=== PATIENT | male | born 1975 ===

== ENCOUNTER 2017-01-27 20:24 | Inpatient (IN) ==
[2017-01-27] MEDS ORDERED: MORPHINE 2 MG/1 ML SYRINGE IV STA (20:55)
[2017-01-27] MEDS ORDERED: FUROSEMIDE 100 MG/10 ML VIAL IV STA (20:55)
[2017-01-27] MEDS ORDERED: ONDANSETRON 4 MG/2 ML VIAL IV STA (20:55)
[2017-01-27] MEDS ORDERED: ALBUTEROL 2.5 MG/3 ML NEB RESP TX SCH (21:00)
[2017-01-27] MEDS ORDERED: ONDANSETRON 4 MG/2 ML VIAL ONE (21:06)
[2017-01-27] MEDS ORDERED: MORPHINE 2 MG/1 ML SYRINGE ONE (21:06)
[2017-01-27] MEDS ORDERED: FUROSEMIDE 100 MG/10 ML VIAL ONE (21:06)
--- NOTE | 2017-01-27 21:12 | Emergency Department Note ---
Vega Erickson Brittany, am scribing for, and in the presence of, Alejandro Diaz MD 21:07. Joe Erickson Charles R, MD, personally performed the services described in this documentation, ascribed by Zina Ferrari in my presence, and it is both accurate and complete . Arrival - Arrival Chief Complaint: Extremity Problem Stated Complaint: left arm pain ED Nursing Triage Note: left hand/ arm pain, denies injury Mode of Arrival: Stretcher Limitations: No Limitations Source: Patient, Old Records Reviewed, RN Notes Reviewed Time Seen by Provider: 01/27/17 20:47 - History of Present Illness HPI Narrative: Mr. Lozada is a 41 y/o [place] male presenting to the ED by EMS from home with c/o pain at the base of the left thumb with an onset of today. He denies suffering from any recent injury or fall. Patient confirms reproducable pain to touch at the base of the left thumb. As we progressed through the history and physical patient goes on to report that he has been having some facial swelling and shortness of breath, but denies any numbness or tingling of the bilateral lower extremities. He is concerned that he may need dialysis tonight, although he is scheduled for his next dialysis appointment in the morning. He has an AV Graft in the left forearm. Patient takes Dialysis on Wednesday, , and Wednesday. Patient has a past medical history of HTN, NIDDM, and End Stage Renal Disease. Allergies/Adverse Reactions: Allergies Allergy/AdvReac Type Severity Reaction Status Date / Time ibuprofen Allergy Unknown/Unable Verified 09/23/16 10:56 to obtain Home Medications: Home Medications Medication Instructions Recorded Confirmed Type Calcium Acetate [Phoslo] 1,334 mg PO TID W/MEALS 09/23/16 09/23/16 History Calcium Acetate [Phoslo] 667 mg PO WITH SNACKS 09/23/16 09/23/16 History Mineral Oil/Petrolatum,White 3.5 gm BOTH EYES BEDTIME 09/23/16 09/23/16 History [Artificial Tears Eye Ointment] Polyvinyl Alcohol 1.4% Oph Ana María 1 drop BOTH EYES QID PRN 09/23/16 09/23/16 History [Artificial Tears Oph Soln] Pregabalin [Lyrica] 25 mg PO BID 09/23/16 09/23/16 History Propylene Glycol [Systane Balance] 1 drop BOTH EYES QID PRN 09/23/16 09/23/16 History Sevelamer Carbonate Tab [Renvela 2,400 mg PO TID W/MEALS 09/23/16 09/23/16 History Tab] clonazePAM TAB [KlonoPIN] 0.5 mg PO BEDTIME PRN 09/23/16 09/23/16 History rOPINIRole [Requip] 2 mg PO BEDTIME PRN 09/23/16 09/23/16 History Acetaminophen Tab [Tylenol Tab] 325 mg PO Q4H PRN #0 tablet 09/26/16 Rx Bisacodyl Tab [Dulcolax Tab] 10 mg PO DAILY PRN #0 tablet 09/26/16 Rx Carvedilol [Coreg] 6.25 mg PO BID tablet 09/26/16 Rx Dextrose 50% [D50] 25 gm IV PRN PRN #0 vial 09/26/16 Rx Diphenoxylate/Atrop 2.5-0.025 1 tablet PO Q4H PRN #0 tablet 09/26/16 Rx [Lomotil Tab] Enoxaparin [Lovenox] 30 mg SUBCUT Q24H syringe 09/26/16 Rx Glucagon 1 mg IM PRN PRN #0 vial 09/26/16 Rx HYDROcodone/ACETAMIN 7.5-325 1 tablet PO Q4H PRN #0 tablet 09/26/16 Rx [[place] 7.5-325] Insulin Glargine [Lantus] 5 unit SUBCUT DAILY injection 09/26/16 Rx Insulin Lispro [HumaLOG] See Protocol SUBCUT ACHS ml 09/26/16 Rx Lactulose Liquid [Chronulac] 20 gm PO Q4H PRN #0 udcup 09/26/16 Rx Losartan Potassium 50 mg PO DAILY #0 09/26/16 09/23/16 Rx Ondansetron Inj [Zofran Inj] 4 mg IV Q4H PRN #0 vial 09/26/16 Rx Vancomycin Inj 1,000 mg IV PRN PRN #0 vial 09/26/16 Rx Review of System - Review of System 12 point system: reviewed and no additional remarkable complaints except as stated - Review of System Constitutional: Absent: chills, fever, weakness Eyes: Absent: vision change Head/Ears/Nose/Throat: Absent: nasal drainage, sore throat Respiratory: Present: respiratory distress Cardiovascular: Absent: chest pain, palpitations Gastrointestinal: Absent: abdominal pain, nausea, vomiting, diarrhea, constipation Genitourinary male: Absent: urgency, dysuria, frequency Musculoskeletal: Present: as per HPI, arm pain. Absent: back pain, leg pain, neck pain Skin: Absent: rash Neurological: Absent: headache, numbness, paresthesias Psychiatric: Absent: anxiety, depression Allergic/Immunologic: Present: facial swelling Medical,Surgical,& Family Hx - Medical History Cardio: History of: Hypertension Neurology: No history of: Seizures Endocrine: History of: Diabetes Mellitus (IDDM), Diabetes Mellitus (NIDDM) Renal: History of: Dialysis, Renal Failure Musculoskeletal: History of: Amputation (partial foot amputation right foot) - Surgical History Cardiac Surgeries: Sugical HX of: Vascular Access Devices (Fistula in his left arm) Thoracic Surgeries: Patient denies;: Organ Transplant HEENT Surgeries: Surgical HX of: Tonsilectomy & Adenoidectomy Abdominal Surgeries: Surgical HX of: Abdominal Surgery (gallbladder), Cholecystectomy Orthopedic Surgeries: Surgical HX of;: Orthopedic Surgery (Amputation of his right toes and partial amputation of his finger on his le) - Family History Family History: Reports;: Family Diabetes, Family Heart Disease, Family Hypertension Denies;: Family Cancer, Family Stroke - Social History Smoking Status: Current every day smoker Frequency of Alcohol Use: None Type of Drug Use: None Exam Vital Signs: Vital Signs Temperature 99.2 F 01/27/17 20:25 Pulse Rate 77 01/27/17 22:20 Respiratory Rate 20 01/27/17 22:20 Blood Pressure 175/81 01/27/17 20:38 O2 Sat by Pulse Oximetry 100 01/27/17 22:20 - General General appearance: alert, in no apparent distress - Head Head exam: Present: atraumatic, normocephalic. Absent: normal inspection ( facial swelling) - Eye Eye exam: Present: normal appearance, PERRL, EOMI - ENT ENT exam: Present: normal exam, normal oropharynx - Neck Neck exam: Present: normal inspection, full ROM, trachea midline - Chest Chest inspection: Present: normal inspection, symmetric chest wall rise - Respiratory Respiratory exam: Present: rales (bilateral rales). Absent: normal lung sounds bilaterally - Cardiovascular Cardiovascular exam: Present: regular rate, normal rhythm, normal heart sounds. Absent: murmur, rubs, gallop - Abdominal Exam Abdominal exam: Present: soft, normal bowel sounds. Absent: distention, tenderness - Extremities Exam Extremities exam: Present: normal inspection (can oppose and move the left thumb normally, sensation is intact, good thrill of AV Graft), full ROM, tenderness (reproducable pain at the base of the left thumb), normal capillary refill, pedal edema (+1 edema noted to bilateral lower extremities) - Back Exam Back exam: Present: normal inspection - Neurological Exam Neurological exam: Present: alert, oriented X3, CN II-XII intact. Absent: motor sensory deficit - Psychiatric Psychiatric exam: Present: normal affect, normal mood - Skin Skin exam: Present: warm, dry, intact, normal color Course - Consultations Consultation #1: Hospitalist will admit patient Time: 22:52 Results - Labs CBC & BMP: 01/27/17 21:15 01/27/17 21:15 Lab Results: I have reviewed the patients labs Labs: Laboratory Tests 01/27/17 01/27/17 21:15 21:15 WBC 9.2 RBC 3.18 L Hgb 10.8 L Hct 31.1 L Plt Count 105 L Neut % (Auto) 86.3 H Lymph % (Auto) 8.7 L Neut # (Auto) 7.9 H Lymph # (Auto) 0.8 L INR 1.0 PT Patient/Control Mix 10.4 Laboratory Tests 01/27/17 01/27/17 01/27/17 21:15 21:15 21:15 Sodium 134 L Potassium 4.6 Chloride 95 L Carbon Dioxide 18 L Anion Gap 25.6 H BUN 113 H Creatinine 20.40 H BUN/Creatinine Ratio 5.00 L Glucose 136 H Calculated Osmolality 305.2 H Uric Acid 9.9 H Calcium 8.2 L Magnesium 2.9 H Alkaline Phosphatase 162 H Troponin I < 0.015 B-Natriuretic Peptide 1621 H Globulin 3.9 H Albumin/Globulin Ratio 0.8 L - Diagnostic Findings Procedure: Chest x-ray: report reviewed by me (Bilateral prominent hilar vasculature may partly reflect crowding. Pulmonary venous hypertensive changes are not excluded.) Critical Care Time Critical Care Time: Yes Total Critical Care Time: 60 Disposition Clinical Impression: ESRD (end stage renal disease) on dialysis, Essential (primary) hypertension, Left wrist acute gouty arthritis, Lower extremity edema, Congestive heart failure, Acute dyspnea Case discussed with: patient, patient's family Condition: Guarded Time of Disposition: 22:52
[2017-01-27] MEDS ORDERED: NITROGLYCERIN 2% OINT 1 INCH/GM PACK TOP ONE (21:14)
[2017-01-27] MEDS ORDERED: NITROGLYCERIN 2% OINT 1 INCH/GM PACK TOP STA (21:28)
--- NOTE | 2017-01-27 21:30 | XRay Report ---
XR chest 1V portable Indication: Shortness of breath Comparison: Chest x-ray 09/23/2016 Technique: Portable AP chest was performed. Findings: The heart size appears within normal limits. Pulmonary vasculature is minimally prominent within the central chest. This finding is stable and is likely accentuated by technique. Hilar structures demonstrate fairly symmetric appearance. The lungs appear clear. Bones and soft tissues demonstrate no evidence of acute pathology. Impression: 1. Bilaterally prominent hilar vasculature may partly reflect crowding. Pulmonary venous hypertensive changes are not excluded. 01/27/2017 9:27 PM PROCEDURE INTERPRETED AT [facility] Final Report Signed by: Dr. Pete Jennings
[2017-01-27 21:35] LABS: Basophils % 0.2 % (0.0-0.8); Eosinophils # 0.1 10*3/uL (0.0-0.87); Eosinophils % 1.3 % (0.00-10.9); Hematocrit 31.1 VOL% (42.0-52.0); Hemoglobin 10.8 GM/DL (14.0-18.0); Immature Granulocytes % 0.5 %; Immature Granulocytes Absolute 0.05 #; Lymphocytes # 0.8 10*3/uL (1.4-4.0); Lymphocytes % 8.7 % (21.2-54.2); Mean Corpuscular HGB Conc 34.7 GM/DL (32-36); Mean Corpuscular Hemoglobin 34 PG (27-34); Mean Corpuscular Volume 97.8 FL (87-102); Monocytes # 0.3 10*3/uL (0.11-0.8); Neutrophils # 7.9 10*3/uL (1.4-7.4); Neutrophils % 86.3 % (38.7-73.9); Platelet Count 105 T/CUMM (130-400); Red Blood Count 3.18 MC/CUMM (3.8-5.5); Red Cell Distribution Width 16.4 % (9.3-17.3); White Blood Count 9.2 T/CUMM (4-12)
[2017-01-27 21:44] LABS: PT Patient Result 10.4 SECS
[2017-01-27 22:06] LABS: Alanine Aminotransferase 52 U/L (16-61); Albumin 3.4 G/DL (3.4-5.0); Alkaline Phosphatase 162 U/L (45-117); Aspartate Amino Transferase 27 U/L (0-37); Blood Urea Nitrogen 113 MG/DL (7-18); Calcium 8.2 MG/DL (8.5-10.1); Glucose 136 MG/DL (74-106); Magnesium 2.9 MG/DL (1.8-2.4); Osmolality,Calculated 305.2 MOS/KG (273-304); Potassium 4.6 MMOL/L (3.5-5.1); Sodium 134 MMOL/L (136-145); Total Protein 7.3 G/DL (6.4-8.3); Troponin I Only < 0.015 NG/ML (0.00-0.045)
[2017-01-27] MEDS ORDERED: COLCHICINE 0.6 MG TABLET PO STA (22:09)
[2017-01-27] MEDS ORDERED: COLCHICINE 0.6 MG TABLET ONE (22:26)
[2017-01-27] MEDS ORDERED: ACETAMINOPHEN 325 MG TABLET PO PRN (23:25)
[2017-01-27] MEDS ORDERED: GLUCAGON 1 MG VIAL IM PRN (23:25)
[2017-01-27] MEDS ORDERED: DEXTROSE 50% 25 GM/50 ML VIAL IV PRN (23:25)
[2017-01-27] MEDS ORDERED: ONDANSETRON 4 MG/2 ML VIAL IV PRN (23:25)
--- NOTE | 2017-01-27 23:37 | Hospitalist History & Physical ---
Assessment and Plan (1) Congestive heart failure Status: Acute Current Visit: Yes (2) ESRD (end stage renal disease) on dialysis Status: Acute Current Visit: Yes (3) Essential (primary) hypertension Status: Acute Current Visit: Yes (4) Lower extremity edema Status: Acute Current Visit: Yes (5) Diabetes mellitus Status: Acute Assessment and plan: Our plan for this patient will be admitting him on a monitored bed. Dialyzing him tomorrow. We will get nephrology to see him while he is here to help arrange for dialysis. Patient should be able to be discharged fairly quickly. Patient does have an elevated BNP at 1621. We will get his home meds confirmed and I will continue as appropriate Current Visit: No History of Present Illness Chief complaint: Shortness of breath History of present illness: Mr. Lozada is a 41 year old male with past medical history for end-stage renal disease hypertension diabetes who comes into our hospital tonight complaining about shortness of breath. Patient gets dialysis on Wednesday and Saturdays. Patient failed to go to his dialysis appointment yesterday. He said he had diarrhea and could not make it. He gets short of breath tonight and call ambulance and was brought up here for further evaluation. Looking at his labs and chest x-ray it appears that patient needs to dialyzed tomorrow. He is stable otherwise this is not emergent Home Medications Medication Instructions Recorded Confirmed Type Calcium Acetate [Phoslo] 1,334 mg PO TID W/MEALS 09/23/16 09/23/16 History Calcium Acetate [Phoslo] 667 mg PO WITH SNACKS 09/23/16 09/23/16 History Mineral Oil/Petrolatum,White 3.5 gm BOTH EYES BEDTIME 09/23/16 09/23/16 History [Artificial Tears Eye Ointment] Polyvinyl Alcohol 1.4% Oph Ana María 1 drop BOTH EYES QID PRN 09/23/16 09/23/16 History [Artificial Tears Oph Soln] Pregabalin [Lyrica] 25 mg PO BID 09/23/16 09/23/16 History Propylene Glycol [Systane Balance] 1 drop BOTH EYES QID PRN 09/23/16 09/23/16 History Sevelamer Carbonate Tab [Renvela 2,400 mg PO TID W/MEALS 09/23/16 09/23/16 History Tab] clonazePAM TAB [KlonoPIN] 0.5 mg PO BEDTIME PRN 09/23/16 09/23/16 History rOPINIRole [Requip] 2 mg PO BEDTIME PRN 09/23/16 09/23/16 History Acetaminophen Tab [Tylenol Tab] 325 mg PO Q4H PRN #0 tablet 09/26/16 Rx Bisacodyl Tab [Dulcolax Tab] 10 mg PO DAILY PRN #0 tablet 09/26/16 Rx Carvedilol [Coreg] 6.25 mg PO BID tablet 09/26/16 Rx Dextrose 50% [D50] 25 gm IV PRN PRN #0 vial 09/26/16 Rx Diphenoxylate/Atrop 2.5-0.025 1 tablet PO Q4H PRN #0 tablet 09/26/16 Rx [Lomotil Tab] Enoxaparin [Lovenox] 30 mg SUBCUT Q24H syringe 09/26/16 Rx Glucagon 1 mg IM PRN PRN #0 vial 09/26/16 Rx HYDROcodone/ACETAMIN 7.5-325 1 tablet PO Q4H PRN #0 tablet 09/26/16 Rx [[place] 7.5-325] Insulin Glargine [Lantus] 5 unit SUBCUT DAILY injection 09/26/16 Rx Insulin Lispro [HumaLOG] See Protocol SUBCUT ACHS ml 09/26/16 Rx Lactulose Liquid [Chronulac] 20 gm PO Q4H PRN #0 udcup 09/26/16 Rx Losartan Potassium 50 mg PO DAILY #0 09/26/16 09/23/16 Rx Ondansetron Inj [Zofran Inj] 4 mg IV Q4H PRN #0 vial 09/26/16 Rx Vancomycin Inj 1,000 mg IV PRN PRN #0 vial 09/26/16 Rx Allergies Allergy/AdvReac Type Severity Reaction Status Date / Time ibuprofen Allergy Unknown/Unable Verified 09/23/16 10:56 to obtain Medical,Surgical,& Family Hx - Medical History Cardio: History of: Hypertension Neurology: No history of: Seizures Endocrine: History of: Diabetes Mellitus (IDDM), Diabetes Mellitus (NIDDM) Renal: History of: Dialysis, Renal Failure Musculoskeletal: History of: Amputation (partial foot amputation right foot) - Surgical History Cardiac Surgeries: Sugical HX of: Vascular Access Devices (Fistula in his left arm) Thoracic Surgeries: Patient denies;: Organ Transplant HEENT Surgeries: Surgical HX of: Tonsilectomy & Adenoidectomy Abdominal Surgeries: Surgical HX of: Abdominal Surgery (gallbladder), Cholecystectomy Orthopedic Surgeries: Surgical HX of;: Orthopedic Surgery (Amputation of his right toes and partial amputation of his finger on his le) - Family History Family History: Reports;: Family Diabetes, Family Heart Disease, Family Hypertension Denies;: Family Cancer, Family Stroke - Social History Smoking Status: Current every day smoker Frequency of Alcohol Use: None Type of Drug Use: None 12 point system: reviewed and no additional remarkable complaints except as stated Exam - Constitutional Vitals: Period Temp Pulse Resp BP Sys/[place]helby Pulse Ox Last 24 Hr 99.2 F-99.2 F 76-77 20-20 172-175/78-81 98-100 General appearance: over weight - Head Head exam: Present: normal inspection - Eye Eye exam: Present: EOMI Pupils: Present: ABRIL - ENT ENT exam: Present: normal exam - Neck Neck exam: Present: normal inspection - Respiratory Respiratory exam: Present: clear to auscultation bilaterally - Cardiovascular Cardiovascular exam: Present: regular rate and rhythm - GI/Abdominal GI/Abdominal exam: Present: normal bowel sounds - Extremities Exam Extremities exam: Present: normal inspection - Back Exam Back exam: Present: normal inspection - Neurological Exam Neurological exam: Present: alert, oriented X3 - Psychiatric Psychiatric exam: Present: normal affect - Skin Skin exam: Present: normal color Results - Labs CBC & BMP: 01/27/17 21:15 01/27/17 21:15
[2017-01-28 06:47] LABS: Basophils % 0.1 % (0.0-0.8); Eosinophils # 0.1 10*3/uL (0.0-0.87); Eosinophils % 1.7 % (0.00-10.9); Hematocrit 27.4 VOL% (42.0-52.0); Hemoglobin 9.2 GM/DL (14.0-18.0); Immature Granulocytes % 1.1 %; Immature Granulocytes Absolute 0.08 #; Lymphocytes % 13.1 % (21.2-54.2); Mean Corpuscular HGB Conc 33.6 GM/DL (32-36); Mean Corpuscular Hemoglobin 33 PG (27-34); Mean Corpuscular Volume 98.6 FL (87-102); Mean Platelet Volume 10.1 FL (9.6-12.0); Monocytes # 0.3 10*3/uL (0.11-0.8); Monocytes % 4.3 % (1.7-12.7); Neutrophils # 5.9 10*3/uL (1.4-7.4); Neutrophils % 79.7 % (38.7-73.9); Platelet Count 105 T/CUMM (130-400); Red Blood Count 2.78 MC/CUMM (3.8-5.5); Red Cell Distribution Width 16.4 % (9.3-17.3); White Blood Count 7.4 T/CUMM (4-12)
--- NOTE | 2017-01-28 07:57 | EKG Report ---
Stationary ECG Study [facility] ER Test Date: 01/27/2017 8:26:44 PM Pat Name: KYLE KELLEY Department: Room: 419 Gender: M Ladder Operator: MANUEL : 1975 Requested by: Alejandro Gomez Order Number: [id number] Reading MD: BEN MORATAYA Intervals [place] Rate: 77 P: 50 NM: 190 QRS: 59 QRSD: 91 T: 36 QT: 381 QTc: 412 Interpretive Statements SINUS RHYTHM Electronically Signed On 01-29-17 22:21:27 CDT by BEN MORATAYA [email or web address]
[2017-01-28 08:00] LABS: Calcium 8.1 MG/DL (8.5-10.1); Osmolality,Calculated 308.2 MOS/KG (273-304); Potassium 4.6 MMOL/L (3.5-5.1)
[2017-01-28] MEDS: PANTOPRAZOLE 40 MG TABLET PO SCH (09:20)
[2017-01-28] MEDS: ENOXAPARIN 30 MG/0.3 ML SYRINGE SUBCUT SCH (09:20)
[2017-01-28] MEDS: INSULIN REGULAR 100 UNIT/ML SUBCUT SCH ×4 (09:21→20:57)
[2017-01-28] MEDS: MORPHINE 2 MG/1 ML SYRINGE IV PRN ×2 (09:25→15:36)
--- NOTE | 2017-01-28 11:29 | Physician Query Form ---
CLICK EDIT DOCUMENT TO SELECT QUERY ANSWER --> OK --> SIGN Jess Jennings RN, CCDS Certified Clinical Intern W) [phone] (f) [phone] [email or web address] PROVIDERS: Make your selection(s) from the choices in EACH section by typing an "x" and enter comments in the comment section. Please use your independent medical judgment in providing your response. This request does not imply that any particular answer is desired or expected. CLINICAL INDICATORS: (Providers should not edit this section) The medical record indicates that the patient was admitted with CHF, SOB, BNP of 1621# and the patient is a dialysis patient. Please provide further specificity regarding CHF. ACUITY: ( ) Acute ( ) Chronic ( x) Acute on Chronic ( ) Clinically unable to determine TYPE: (x ) Systolic (HFrEF - heart failure with reduced systolic function/EF) ( ) Diastolic (HFpEF - heart failure with preserved systolic function/EF) ( ) Combined Systolic/Diastolic ( ) Other, please specify: ( ) Clinically unable to determine ( ) The patient does NOT have CHF COMMENTS: PLEASE ALSO DOCUMENT RESPONSE IN PROGRESS NOTES AND/OR DISCHARGE SUMMARY Use of terms such as suspected, likely, or probable (associated with a specific diagnosis that is being evaluated, monitored, or treated as if it exists) are acceptable and can be restated in the discharge summary if not ruled out. MTDD
[2017-01-28] MEDS ORDERED: ACETAMINOPHEN 325 MG TABLET PO PRN (12:25)
--- NOTE | 2017-01-28 12:25 | Nephrology Consult Note ---
History of Present Illness Chief complaint: End-stage renal disease History of present illness: Mr. Lozada is a 41 year old male history of end-stage renal disease due to hypertension and diabetes currently dialyzes at the [place] dialysis unit on a Wednesday schedule. Moreover, patient has history of chronic diarrhea and reported that he did not go to dialysis on Wednesday due to stomach symptoms. He presented on yesterday with increased swelling shortness of breath and arm pain. He is found to be volume overloaded and has been admitted for further treatment. Nephrology is been consulted for dialysis management. Home Medications Medication Instructions Recorded Confirmed Type Calcium Acetate [Phoslo] 1,334 mg PO TID W/MEALS 09/23/16 01/28/17 History Calcium Acetate [Phoslo] 667 mg PO WITH SNACKS 09/23/16 01/28/17 History Mineral Oil/Petrolatum,White 3.5 gm BOTH EYES BEDTIME 09/23/16 01/28/17 History [Artificial Tears Eye Ointment] Polyvinyl Alcohol 1.4% Oph Ana María 1 drop BOTH EYES QID PRN 09/23/16 01/28/17 History [Artificial Tears Oph Soln] Pregabalin [Lyrica] 25 mg PO BID 09/23/16 01/28/17 History Propylene Glycol [Systane Balance] 1 drop BOTH EYES QID PRN 09/23/16 01/28/17 History Sevelamer Carbonate Tab [Renvela 2,400 mg PO TID W/MEALS 09/23/16 01/28/17 History Tab] clonazePAM TAB [KlonoPIN] 0.5 mg PO BEDTIME PRN 09/23/16 01/28/17 History rOPINIRole [Requip] 2 mg PO BEDTIME PRN 09/23/16 01/28/17 History Acetaminophen Tab [Tylenol Tab] 325 mg PO Q4H PRN #0 tablet 09/26/16 01/28/17 Rx Bisacodyl Tab [Dulcolax Tab] 10 mg PO DAILY PRN #0 tablet 09/26/16 01/28/17 Rx Dextrose 50% [D50] 25 gm IV PRN PRN #0 vial 09/26/16 01/28/17 Rx Diphenoxylate/Atrop 2.5-0.025 1 tablet PO Q4H PRN #0 tablet 09/26/16 01/28/17 Rx [Lomotil Tab] Enoxaparin [Lovenox] 30 mg SUBCUT Q24H syringe 09/26/16 01/28/17 Rx Glucagon 1 mg IM PRN PRN #0 vial 09/26/16 01/28/17 Rx HYDROcodone/ACETAMIN 7.5-325 1 tablet PO Q4H PRN #0 tablet 09/26/16 01/28/17 Rx [[place] 7.5-325] Insulin Glargine [Lantus] 5 unit SUBCUT DAILY injection 09/26/16 01/28/17 Rx Insulin Lispro [HumaLOG] See Protocol SUBCUT ACHS ml 09/26/16 01/28/17 Rx Lactulose Liquid [Chronulac] 20 gm PO Q4H PRN #0 udcup 09/26/16 01/28/17 Rx Losartan Potassium 50 mg PO DAILY #0 09/26/16 01/28/17 Rx Ondansetron Inj [Zofran Inj] 4 mg IV Q4H PRN #0 vial 09/26/16 01/28/17 Rx Vancomycin Inj 1,000 mg IV PRN PRN #0 vial 09/26/16 01/28/17 Rx Carvedilol [Coreg] 25 mg PO BID 01/28/17 01/28/17 History Cetirizine Tab [ZyrTEC Tab] 10 mg PO DAILY 01/28/17 01/28/17 History Gabapentin 600 mg PO BEDTIME 01/28/17 01/28/17 History amLODIPine [Norvasc] 10 mg PO DAILY 01/28/17 01/28/17 History Allergies Allergy/AdvReac Type Severity Reaction Status Date / Time ibuprofen Allergy Unknown/Unable Verified 09/23/16 10:56 to obtain Medical,Surgical,& Family Hx - Medical History Cardio: History of: Hypertension Neurology: No history of: Seizures Endocrine: History of: Diabetes Mellitus (IDDM), Diabetes Mellitus (NIDDM) Renal: History of: Dialysis, Renal Failure Musculoskeletal: History of: Amputation (partial foot amputation right foot) - Surgical History Cardiac Surgeries: Sugical HX of: Vascular Access Devices (Fistula in his left arm) Thoracic Surgeries: Patient denies;: Organ Transplant HEENT Surgeries: Surgical HX of: Tonsilectomy & Adenoidectomy Abdominal Surgeries: Surgical HX of: Abdominal Surgery (gallbladder), Cholecystectomy Reproductive Surgeries: Patient denies;: Breast Surgery, Vasectomy Orthopedic Surgeries: Surgical HX of;: Orthopedic Surgery (Amputation of his right toes and partial amputation of his finger on his le) - Family History Family History: Reports;: Family Diabetes, Family Heart Disease, Family Hypertension Denies;: Family Cancer, Family Stroke - Social History Smoking Status: Current every day smoker Frequency of Alcohol Use: None Type of Drug Use: None Review of Systems Constitutional: fatigue, malaise, no anorexia Nose, mouth and throat: no dysphagia, no epistaxis Cardiovascular: dyspnea, dyspnea on exertion, no chest pain at rest Gastrointestinal: no abdominal pain, no bloating Exam - Vital Signs Vital signs: Period Temp Pulse Resp BP Sys/[place] Pulse Ox Last 24 Hr 98.8 F-99.8 F 69-77 18-20 153-175/72-81 94-100 - General Appearance General appearance: well-developed, well-nourished EENT: ATNC Neck: supple Respiratory: clear Cardiology: regular rate, regular rhythm Gastrointestinal: normoactive bowel sounds, no tenderness Integumentary: no rash Neurologic: alert and oriented x3, CN 3-12 intact Musculoskeletal: no deformities, no clubbing Psychiatric: mood/affect appropriate Results - Labs CBC & BMP: 01/28/17 04:00 01/28/17 04:00 Assessment and Plan (1) Diabetes mellitus Status: Chronic Current Visit: No Qualifiers: Diabetes mellitus type: type 2 Chronic kidney disease stage: on chronic dialysis (2) ESRD (end stage renal disease) on dialysis Status: Acute Current Visit: Yes (3) Essential (primary) hypertension Status: Chronic Assessment and plan: Restart antihypertensive medications. Current Visit: Yes (4) Diarrhea Status: Acute Current Visit: No (5) Congestive heart failure Status: Chronic Current Visit: Yes Qualifiers: Congestive heart failure type: unspecified congestive heart failure type (6) Acute dyspnea Status: Resolved Assessment and plan: Shortness of breath has improved since starting dialysis. Current Visit: Yes
--- NOTE | 2017-01-28 12:25 | Dialysis Note ---
Dialysis Note - Dialysis Note Patient seen on dialysis. He is tolerating the procedure. Blood pressure 170/ 80. Will restart antihypertensive medications. Continue with hemodialysis.
[2017-01-28] MEDS ORDERED: CALCIUM ACETATE 667 MG CAPSULE PO SCH (12:30)
--- NOTE | 2017-01-28 16:15 | Hospitalist Progress Note ---
Assessment and Plan (1) Acute pulmonary edema Status: Acute Assessment and plan: Patient will need dialysis for fluid management of this fluid overload. Avoid salt overload. I doubt that this was clinical congestive heart failure but it may have been congestive circulatory overload. I cannot find an echocardiogram in the system. I checked with all visits on the cardiovascular testing. Current Visit: Yes (2) Diabetes mellitus Status: Chronic Current Visit: No Qualifiers: Diabetes mellitus type: type 2 Diabetes mellitus complication status: with kidney complications Diabetes mellitus complication detail: with chronic kidney disease Diabetes mellitus continuous churn buttermaker insulin use: with mcc use Chronic kidney disease stage: on chronic dialysis Qualified Code(s): E11.22 - Type 2 diabetes mellitus with diabetic chronic kidney disease; N18.6 - End stage renal disease; Z79.4 - exterminator (current) use of insulin; Z99.2 - Dependence on renal dialysis (3) Essential (primary) hypertension Status: Chronic Assessment and plan: Acute pulmonary edema does have systolic elevated numbers. Will resume home medication. Current Visit: Yes (4) Diarrhea Status: Acute Assessment and plan: Patient states that this is not an issue at this point. Current Visit: No (5) Lower extremity edema Status: Acute Assessment and plan: May need to be using compression stockings at home. I am concerned that he is already having stasis dermatopathy just a question of when he will get stasis ulcers. Current Visit: Yes Hospitalist: Subjective Interval history: Mr. Lozada has been seen interviewed and examined and chart has been reviewed. Patient admitted yesterday to the hospital with fluid overload pulmonary edema because he had missed his dialysis sessions. He has a history of end- stage renal disease complicating diabetes mellitus a history of hypertension does have chronic leg edema some stasis dermatopathy. He has been seen after dialysis today he says he did not pull out as much fluid as would have expected because he started cramping half the way into the session. Exam - Constitutional Vitals: Period Temp Pulse Resp BP Sys/Shelby Pulse Ox Last 24 Hr 98.8 F-100.4 F 69-80 18-22 153-189/72-81 94-100 General appearance: over weight - Head Head exam: Present: normocephalic, atraumatic - Eye Eye exam: Present: EOMI, other (Anicteric sclera no conjunctival petechia) Pupils: Present: ABRIL - ENT ENT exam: Present: normal exam - Neck Neck exam: Present: normal inspection - Respiratory Respiratory exam: Present: clear to auscultation bilaterally - Cardiovascular Cardiovascular exam: Present: regular rate and rhythm - GI/Abdominal GI/Abdominal exam: Present: normal bowel sounds, soft, other (Moderately rotund abdomen) - Extremities Exam Extremities exam: Present: full ROM - Back Exam Back exam: Present: normal inspection - Neurological Exam Neurological exam: Present: alert, oriented X3, CN II-XII intact - Psychiatric Psychiatric exam: Present: normal affect, normal mood - Skin Skin exam: Present: warm, other (Unequal leg edema with stasis dermatopathy) Results - Labs CBC & BMP: 01/28/17 04:00 01/28/17 04:00 Lab Results: I have reviewed the past 24 hour labs (Noted mild hyponatremia and hypochloremia)
[2017-01-28] MEDS: CALCIUM ACETATE 667 MG CAPSULE PO SCH (16:39)
[2017-01-28] MEDS: CARVEDILOL 25 MG TABLET PO SCH (21:00)
[2017-01-28] MEDS: ZALEPLON 5 MG CAPSULE PO PRN (22:21)
[2017-01-29] MEDS: ZALEPLON 5 MG CAPSULE PO PRN ×2 (00:12→21:18)
[2017-01-29] MEDS: INSULIN REGULAR 100 UNIT/ML SUBCUT SCH ×4 (08:33→21:19)
--- NOTE | 2017-01-29 08:34 | Hospitalist Progress Note ---
Assessment and Plan (1) Acute pulmonary edema Status: Acute Assessment and plan: Patient will needed dialysis for fluid management of this fluid overload. Avoid salt overload. I doubt that this was clinical congestive heart failure but it may have been congestive circulatory overload. I cannot find an echocardiogram in the system. I checked with all visits on the cardiovascular testing. I will order an echocardiogram of this gentleman. Await comment from nephrology regarding his fluid status. Current Visit: Yes (2) Diabetes mellitus Status: Chronic Current Visit: No Qualifiers: Diabetes mellitus type: type 2 Diabetes mellitus complication status: with kidney complications Diabetes mellitus complication detail: with chronic kidney disease Diabetes mellitus termite inspector insulin use: with termite inspector use Chronic kidney disease stage: on chronic dialysis Qualified Code(s): E11.22 - Type 2 diabetes mellitus with diabetic chronic kidney disease; N18.6 - End stage renal disease; Z79.4 - MCC (current) use of insulin; Z99.2 - Dependence on renal dialysis (3) Essential (primary) hypertension Status: Chronic Assessment and plan: Acute pulmonary edema does have systolic elevated numbers. Will resume home medication. Current Visit: Yes (4) Diarrhea Status: Acute Assessment and plan: Patient states that this is not an issue at this point. Current Visit: No (5) Lower extremity edema Status: Acute Assessment and plan: May need to be using compression stockings at home. I am concerned that he is already having stasis dermatopathy just a question of when he will get stasis ulcers. Current Visit: Yes Hospitalist: Subjective Interval history: Patient is seen interviewed and examined and chart has been reviewed. Complaining of feeling short of air and this was worse last night he says. He has a hospital acute pulmonary edema with fluid overload history of dialysis and he had missed dialysis sessions prior to coming in yesterday. Getting dialysis yesterday. Does inform me that at admission his weight was quite high above his dry weight but the only took out for what he expected to be taken out in terms of fluid and he started cramping. Lungs no sound weight at this time but he says is short of air. Notices the blood pressure is quite high. At home he takes carvedilol 6.25 mg twice a day and losartan 50 mg daily for blood pressure. I will increase the losartan 100 mg daily. Exam - Constitutional Vitals: Period Temp Pulse Resp BP Sys/Shelby Pulse Ox Last 24 Hr 97.4 F-100.6 F 69-80 18-22 167-198/72-90 90-96 General appearance: over weight - Head Head exam: Present: normocephalic, atraumatic - Eye Eye exam: Present: EOMI Pupils: Present: ABRIL - ENT ENT exam: Present: normal exam - Neck Neck exam: Present: normal inspection - Respiratory Respiratory exam: Present: clear to auscultation bilaterally, other (No rales no wheezing) - Cardiovascular Cardiovascular exam: Present: regular rate and rhythm - GI/Abdominal GI/Abdominal exam: Present: normal bowel sounds, soft, other (Rotund abdomen) - Extremities Exam Extremities exam: Present: full ROM - Back Exam Back exam: Present: normal inspection - Neurological Exam Neurological exam: Present: alert, oriented X3, CN II-XII intact - Psychiatric Psychiatric exam: Present: normal affect, normal mood - Skin Skin exam: Present: normal color, warm, dry Results - Labs CBC & BMP: 01/28/17 04:00 01/28/17 04:00 Lab Results: I have reviewed the past 24 hour labs (Repeat BMP and magnesium in the morning)
[2017-01-29] MEDS ORDERED: POLYVINYL ALCOHOL 1.4% OPH SOLN 15 ML BOTTLE BOTH EYES PRN (08:38)
[2017-01-29] MEDS ORDERED: LACTULOSE 20 GM/30 ML UDCUP PO PRN (08:38)
[2017-01-29] MEDS ORDERED: BISACODYL 5 MG TABLET PO PRN (08:38)
[2017-01-29] MEDS ORDERED: Propylene Glycol [Systane Balance] 1 DROP BOTH EYES PRN (08:38)
[2017-01-29] MEDS: amLODIPine 10 MG TABLET PO SCH (09:11)
[2017-01-29] MEDS: LOSARTAN 50 MG TABLET PO SCH (09:11)
[2017-01-29] MEDS: CALCIUM ACETATE 667 MG CAPSULE PO SCH ×3 (09:11→16:11)
[2017-01-29] MEDS: ENOXAPARIN 30 MG/0.3 ML SYRINGE SUBCUT SCH (09:12)
[2017-01-29] MEDS: CARVEDILOL 25 MG TABLET PO SCH ×2 (09:12→21:17)
[2017-01-29] MEDS: PANTOPRAZOLE 40 MG TABLET PO SCH (09:12)
[2017-01-29] MEDS: MORPHINE 2 MG/1 ML SYRINGE IV PRN ×2 (09:12→16:10)
[2017-01-29] MEDS: INSULIN GLARGINE 100 UNIT/ML SUBCUT SCH (09:16)
--- NOTE | 2017-01-29 14:52 | Nephrology Progress Note ---
Nephrology - PN: Subj Interval history: Patient is resting no acute changes. No shortness of breath or chest pain. He does mention that he has problems going to sleep at night. He is currently getting Sonata that was started on yesterday. Exam (PN)-Nephrology - Vital Signs Vital signs: Period Temp Pulse Resp BP Sys/Shelby Pulse Ox Last 24 Hr 97.4 F-100.6 F 64-80 18-22 127-198/68-90 90-96 - General Appearance General appearance: well-developed, well-nourished EENT: ATNC Neck: supple Respiratory: clear Cardiology: regular rate, regular rhythm Gastrointestinal: normoactive bowel sounds Neurologic: alert and oriented x3, CN 3-12 intact Musculoskeletal: no clubbing Psychiatric: mood/affect appropriate - Lab 01/28/17 04:00 01/28/17 04:00 Most recent lab results Calcium 8.1 MG/DL (8.5-10.1) L 01/28/17 04:00 Magnesium 2.9 MG/DL (1.8-2.4) H 01/27/17 21:15 Assessment and Plan (1) Diabetes mellitus Status: Chronic Current Visit: No Qualifiers: Diabetes mellitus type: type 2 Diabetes mellitus complication status: with kidney complications Diabetes mellitus complication detail: with chronic kidney disease Diabetes mellitus mcfp insulin use: with mcfp use Chronic kidney disease stage: on chronic dialysis Qualified Code(s): E11.22 - Type 2 diabetes mellitus with diabetic chronic kidney disease; N18.6 - End stage renal disease; Z79.4 - long term care phlebotomist (current) use of insulin; Z99.2 - Dependence on renal dialysis (2) ESRD (end stage renal disease) on dialysis Status: Acute Current Visit: Yes (3) Essential (primary) hypertension Status: Chronic Assessment and plan: Continue antihypertensive medications. Current Visit: Yes (4) Diarrhea Status: Acute Current Visit: No (5) Congestive heart failure Status: Chronic Current Visit: Yes Qualifiers: Congestive heart failure type: unspecified congestive heart failure type (6) Acute dyspnea Status: Resolved Assessment and plan: This has resolved. Current Visit: Yes
[2017-01-29] MEDS ORDERED: MINERAL OIL/PETROLATUM OPH OINT 3.5 GM TUBE BOTH EYES SCH (21:00)
--- NOTE | 2017-01-29 21:27 | ECHO Report ---
Justus Lozada Exam Date: 01/29/2017 15:30 Referring Physician: Technologist: Ida Orozco Age: 41 Ht (in): 69 Wt (lb): 269 Gender: M Exam Location: [facility] Echo Indications: ESRD, CHF, HTN, acute pulmonary edema, acute dyspnea BP: 127 / 74 HR: 64 Rhythm: Sinus Technical Quality: IMPRESSIONS Normal left ventricular size, with mild concentric hypertrophy, without wall motion abnormalities. Estimated left ventricular ejection fraction 60%. Grade 3 diastolic dysfunction. Biatrial enlargement. Mildly dilated right ventricle, with normal systolic function and normal pulmonary pressure. Mild mitral valve sclerosis. Mild mitral valve regurgitation. Mild aortic valve sclerosis without stenosis or regurgitation. MEASUREMENTS (Male / Female) Normal Values 2D ECHO LV Diastolic Diameter PLAX 4.2 cm 4.2 - 5.9 / 3.9 - 5.3 cm LV Systolic Diameter PLAX 3.1 cm LV Fractional Shortening PLAX 26.6 % IVS Diastolic Thickness 1.6 cm 0.6 - 1.0 / 0.6 - 0.9 cm LVPW Diastolic Thickness 1.4 cm 0.6 - 1.0 / 0.6 - 0.9 cm RV Internal Dim ED PLAX 3.3 cm Aortic Root Diameter 2.8 cm LA Systolic Diameter LX 5.1 cm 3.0 - 4.0 / 2.7 - 3.8 cm DOPPLER TR Peak Velocity 252.0 cm/s TR Peak Gradient 25.4 mmHg FINDINGS Left Ventricle Normal left ventricular size, with mild concentric hypertrophy, without wall motion abnormalities. Estimated left ventricular ejection fraction 60%. Grade 3 diastolic dysfunction. Right Ventricle Mildly dilated right ventricle, with normal systolic function. Right Atrium The right atrium is mildly enlarged. Left Atrium Moderately increased left atrial diameter. Mitral Valve Mild mitral valve sclerosis. Mild mitral valve regurgitation. Aortic Valve Mild aortic valve sclerosis without stenosis or regurgitation. Tricuspid Valve Morphologically normal tricuspid valve. Mild tricuspid valve regurgitation. Tricuspid regurgitation velocities suggest a PAP of 35 mmHg. Pulmonic Valve Morphologically normal pulmonic valve. Trace pulmonary valve regurgitation. Pericardium No pericardial effusion. Aorta Normal size aortic root and proximal ascending aorta. Jordi Thomas (Electronically Signed) Final Date: 29 Jan 2017 21:26
[2017-01-30] MEDS: MORPHINE 2 MG/1 ML SYRINGE IV PRN (06:25)
[2017-01-30] MEDS: INSULIN REGULAR 100 UNIT/ML SUBCUT SCH ×3 (09:19→16:12)
[2017-01-30] MEDS: CALCIUM ACETATE 667 MG CAPSULE PO SCH ×3 (09:19→16:12)
--- NOTE | 2017-01-30 10:57 | Dialysis Note ---
Dialysis Note - Dialysis Note Mr. Lozada is seen during his hemodialysis. He is breathing comfortably and feels that he is no longer short of breath. His only problem is chronic diarrhea for which she will be seeing gastroenterology as an outpatient. He feels like he is able to go home and I think that that would be reasonable as well.
[2017-01-30] MEDS: INSULIN GLARGINE 100 UNIT/ML SUBCUT SCH (12:29)
[2017-01-30] MEDS: ENOXAPARIN 30 MG/0.3 ML SYRINGE SUBCUT SCH (12:31)
[2017-01-30] MEDS: PANTOPRAZOLE 40 MG TABLET PO SCH (12:32)
[2017-01-30] MEDS: amLODIPine 10 MG TABLET PO SCH (12:32)
[2017-01-30] MEDS: LOSARTAN 50 MG TABLET PO SCH (12:32)
[2017-01-30] MEDS: CARVEDILOL 25 MG TABLET PO SCH (12:32)
--- NOTE | 2017-01-30 15:59 | Discharge Summary ---
<Lorrie Chong - Last Filed: 01/30/17 16:11> Hospital Course - Hospital Course Hospital Course: Mr. Lozada is a 41 yr old male patient with a past medical history of end- stage renal disease, hypertension, and diabetes who presented to the ED on with complaints of shortness of breath and arm pain. Patient has a dialysis schedule of Wednesday, , and Saturdays. Patient failed to go to his dialysis appointment on 01/26 due to issues of diarrhea. The patient became increasing short of breath and reported for further evaluation. Pt's CXR revealed the patient was in fluid overload. Pt. was admitted for further eval and treatment. Nephrology was consulted to see patient. Pt's hypertension was treated during stay. Pt. was dialyzed twice and will be discharged today. Pt. has improved and will continue with his regular schedule. Discharge Plan - Discharge Medications New Acetaminophen Tab [Tylenol Tab] 325 mg PO Q4H PRN tablet PRN Reason: fever, headache/body aches Calcium Acetate [Phoslo] 667 mg PO WITH SNACKS capsule Carvedilol [Coreg] 25 mg PO BID tablet Insulin Glargine [Lantus] 5 unit SUBCUT DAILY unit Lactulose Liquid [Chronulac] 20 gm PO Q4H PRN PRN Reason: Constipation Losartan [Cozaar] 50 mg PO DAILY tablet amLODIPine [Norvasc] 10 mg PO DAILY tablet Bisacodyl Tab [Dulcolax Tab] 10 mg PO DAILY PRN tablet PRN Reason: Constipation Calcium Acetate [Phoslo] 1,334 mg PO TID W/MEALS capsule Mineral Oil/Petrolat Oph Oint [Refresh PM Oph Oint] 1 applic BOTH EYES BEDTIME applic Continue rOPINIRole [Requip] 2 mg PO BEDTIME PRN PRN Reason: RLS Dextrose 50% [D50] 25 gm IV PRN PRN #0 vial PRN Reason: Hypoglycemia with IV access Diphenoxylate/Atrop 2.5-0.025 [Lomotil Tab] 1 tablet PO Q4H PRN #0 tablet PRN Reason: Diarrhea Glucagon 1 mg IM PRN PRN #0 vial PRN Reason: Hypoglycemia w/o IV access Insulin Lispro [HumaLOG] See Protocol SUBCUT ACHS ml Gabapentin 600 mg PO BEDTIME Cetirizine Tab [ZyrTEC Tab] 10 mg PO DAILY clonazePAM TAB [KlonoPIN] 0.5 mg PO BEDTIME PRN PRN Reason: RLS Pregabalin [Lyrica] 25 mg PO BID Sevelamer Carbonate Tab [Renvela Tab] 2,400 mg PO TID W/MEALS Enoxaparin [Lovenox] 30 mg SUBCUT Q24H syringe HYDROcodone/ACETAMIN 7.5-325 [[place] 7.5-325] 1 tablet PO Q4H PRN #0 tablet PRN Reason: Pain Moderate (4-7) Discontinued Calcium Acetate [Phoslo] 667 mg PO WITH SNACKS Mineral Oil/Petrolatum,White [Artificial Tears Eye Ointment] 3.5 gm BOTH EYES BEDTIME Propylene Glycol [Systane Balance] 1 drop BOTH EYES QID PRN PRN Reason: Dry Eyes Bisacodyl Tab [Dulcolax Tab] 10 mg PO DAILY PRN #0 tablet PRN Reason: Constipation Insulin Glargine [Lantus] 5 unit SUBCUT DAILY injection Ondansetron Inj [Zofran Inj] 4 mg IV Q4H PRN #0 vial PRN Reason: Nausea Vancomycin Inj 1,000 mg IV PRN PRN #0 vial PRN Reason: PHARMACY DOSING amLODIPine [Norvasc] 10 mg PO DAILY Calcium Acetate [Phoslo] 1,334 mg PO TID W/MEALS Acetaminophen Tab [Tylenol Tab] 325 mg PO Q4H PRN #0 tablet PRN Reason: fever, headache/body aches Lactulose Liquid [Chronulac] 20 gm PO Q4H PRN #0 udcup PRN Reason: Constipation Losartan Potassium 50 mg PO DAILY #0 Carvedilol [Coreg] 25 mg PO BID No Action Polyvinyl Alcohol 1.4% Oph Ana María [Artificial Tears Oph Soln] 1 drop BOTH EYES QID PRN PRN Reason: Dry Eyes - Follow Up or Referral - Forms/Instructions Exam - Constitutional Vitals: Period Temp Pulse Resp BP Sys/Shelby Pulse Ox Last 24 Hr 98.2 F-99.1 F 59-90 18-20 128-176/54-82 93-95 Discharge Results Procedures and tests throughout hospitalization: Pending Orders 01/27/17 22:49 Blood Culture Stat Labs on day of discharge: Labs from last 24 hours 01/30/17 01/30/17 15:56 12:37 POC Glucose 185 H 93 Preliminary micro results at discharge 01/27/17 22:49 Blood Culture - Preliminary Blood No growth at 1 day 01/27/17 22:49 Blood Culture - Preliminary Blood No growth at 1 day DS: Provider Date of admission: 01/27/17 23:32 Primary care physician: Yanet Reis MD Attending physician on admission: Hector Marsh MD Consults: 01/27/17 23:25 Consult to Physician [CONS] Routine Comment: Consulting Provider: Erik Benites Jr. Consulting Provider Notified: Yes When should Consulting Provider be notified: Now Consult to Specialist Group: Nephrology When should Consulting Provider be notified: Now Person Notified: VINITA Date Notified: 01/28/17 Time Notified: 09:46 Discharging clinician: Lorrie Chong NP <Josiah Marquez - Last Filed: 01/30/17 16:29> Hospital Course - Time spent with patient Time with patient DS: Less than 30 minutes Diagnosis - Discharge Diagnosis (1) Diabetes mellitus Status: Chronic (2) ESRD (end stage renal disease) on dialysis Status: Chronic (3) Essential (primary) hypertension Status: Chronic (4) Diarrhea Status: Chronic Discharge Plan - Discharge Data Condition at Discharge: Stable Discharge Diet: low salt diet Activity: increase activity as tolerated Hygiene: no restrictions Weight Bearing at Discharge: weight bear as tolerated Driving: no restrictions Exam - Constitutional General appearance: over weight - Head Head exam: Present: normocephalic, atraumatic - Eye Eye exam: Present: EOMI Pupils: Present: ABRIL - ENT ENT exam: Present: normal exam - Neck Neck exam: Present: normal inspection - Respiratory Respiratory exam: Present: clear to auscultation bilaterally. Absent: rhonchi, wheezes - Cardiovascular Cardiovascular exam: Present: regular rate and rhythm - GI/Abdominal GI/Abdominal exam: Present: normal bowel sounds, soft. Absent: tenderness, rebound - Extremities Exam Extremities exam: Present: normal inspection - Back Exam Back exam: Present: normal inspection - Neurological Exam Neurological exam: Present: alert, oriented X3 - Psychiatric Psychiatric exam: Present: normal affect, normal mood - Skin Skin exam: Present: warm, intact
[2017-01-30 16:39] VITALS: BP 160/79
== END 2017-01-30 19:19 | disposition home or self-care (01) | DRG 291 ==
LOC: EDUNIT# → EDBD → N.ED 20:24 → N.EDINP 23:32 → SUATTDRO 23:32 → N.4E 01-28 00:05
PROVIDERS: ADMIT Internal Medicine; ATTEND Internal Medicine

== ENCOUNTER 2017-09-29 22:23 | Inpatient (IN) ==
[2017-09-29] MEDS ORDERED: ASPIRIN 325 MG TABLET PO STA (23:08)
[2017-09-29] MEDS ORDERED: ASPIRIN 325 MG TABLET ONE (23:21)
[2017-09-29] MEDS ORDERED: NITROGLYCERIN DRIP 50 MG/250 ML BOTTLE IV ONE (23:21)
[2017-09-29 23:23] LABS: Basophils % 0.4 % (0.0-0.8); Eosinophils # 0.1 10*3/uL (0.0-0.87); Eosinophils % 1.5 % (0.00-10.9); Hematocrit 31.8 VOL% (42.0-52.0); Hemoglobin 10.2 GM/DL (14.0-18.0); Immature Granulocytes % 0.6 %; Immature Granulocytes Absolute 0.04 #; Lymphocytes # 1.2 10*3/uL (1.4-4.0); Lymphocytes % 16.9 % (21.2-54.2); Mean Corpuscular HGB Conc 32.1 GM/DL (32-36); Mean Corpuscular Hemoglobin 32 PG (27-34); Mean Corpuscular Volume 98.8 FL (87-102); Monocytes # 0.4 10*3/uL (0.11-0.8); Monocytes % 5.1 % (1.7-12.7); Neutrophils # 5.4 10*3/uL (1.4-7.4); Neutrophils % 75.5 % (38.7-73.9); Platelet Count 119 T/CUMM (130-400); Red Blood Count 3.22 MC/CUMM (3.8-5.5); Red Cell Distribution Width 14.4 % (9.3-17.3); White Blood Count 7.1 T/CUMM (4-12)
[2017-09-29] MEDS ORDERED: NITROGLYCERIN DRIP 50 MG/250 ML BOTTLE IV SCH (23:30)
[2017-09-29] MEDS ORDERED: MORPHINE 2 MG/1 ML SYRINGE IV STA (23:34)
[2017-09-29] MEDS ORDERED: MORPHINE 2 MG/1 ML SYRINGE ONE (23:35)
[2017-09-29 23:41] LABS: Albumin 3.8 G/DL (3.4-5.0); Bilirubin,Total 0.6 MG/DL (0.2-1.0); Calcium 7.6 MG/DL (8.5-10.1); Osmolality,Calculated 291.4 MOS/KG (273-304); Potassium 4.1 MMOL/L (3.5-5.1); Total Protein 7.9 G/DL (6.4-8.3)
[2017-09-30] MEDS ORDERED: MORPHINE 2 MG/1 ML SYRINGE IV STA (02:08)
[2017-09-30] MEDS ORDERED: niCARdipine 25 MG/10 ML VIAL IV ONE (02:18)
[2017-09-30] MEDS ORDERED: MORPHINE 10 MG/1 ML VIAL ONE ×2 (02:28→02:29)
[2017-09-30] MEDS ORDERED: niCARdipine INJ 25 MG in SODIUM CHLORIDE 0.9% 240 ML IV SCH (02:30)
[2017-09-30] MEDS ORDERED: ONDANSETRON 4 MG/2 ML VIAL IV PRN (02:34)
[2017-09-30] MEDS ORDERED: clonazePAM 0.5 MG TABLET PO PRN (02:36)
[2017-09-30] MEDS ORDERED: DEXTROSE 50% 25 GM/50 ML VIAL IV PRN (02:47)
[2017-09-30] MEDS ORDERED: GLUCAGON 1 MG VIAL IM PRN (02:47)
[2017-09-30] MEDS ORDERED: FUROSEMIDE 40 MG/4 ML VIAL IV STA (02:51)
[2017-09-30] MEDS ORDERED: FUROSEMIDE 100 MG/10 ML VIAL ONE (03:04)
[2017-09-30] MEDS ORDERED: CALCIUM ACETATE 667 MG CAPSULE PO SCH (04:00)
[2017-09-30] MEDS: MORPHINE 2 MG/1 ML SYRINGE IV PRN ×4 (05:23→20:30)
[2017-09-30 06:37] LABS: Basophils % 0.4 % (0.0-0.8); Eosinophils # 0.1 10*3/uL (0.0-0.87); Eosinophils % 1.3 % (0.00-10.9); Hematocrit 30.1 VOL% (42.0-52.0); Hemoglobin 9.5 GM/DL (14.0-18.0); Immature Granulocytes % 0.6 %; Immature Granulocytes Absolute 0.05 #; Lymphocytes # 0.9 10*3/uL (1.4-4.0); Mean Corpuscular HGB Conc 31.6 GM/DL (32-36); Mean Corpuscular Hemoglobin 31 PG (27-34); Mean Platelet Volume 10.1 FL (9.6-12.0); Monocytes # 0.4 10*3/uL (0.11-0.8); Monocytes % 4.5 % (1.7-12.7); Neutrophils # 6.3 10*3/uL (1.4-7.4); Neutrophils % 82.2 % (38.7-73.9); Platelet Count 115 T/CUMM (130-400); Red Blood Count 3.04 MC/CUMM (3.8-5.5); Red Cell Distribution Width 14.6 % (9.3-17.3); White Blood Count 7.7 T/CUMM (4-12)
[2017-09-30 07:08] LABS: Bilirubin,Total 0.9 MG/DL (0.2-1.0); Calcium 7.3 MG/DL (8.5-10.1)
[2017-09-30 07:09] LABS: Albumin 3.3 G/DL (3.4-5.0); Osmolality,Calculated 284.8 MOS/KG (273-304); Potassium 4.3 MMOL/L (3.5-5.1); Total Protein 6.9 G/DL (6.4-8.3)
[2017-09-30] MEDS: LOSARTAN 50 MG TABLET PO SCH (08:30)
[2017-09-30] MEDS: CARVEDILOL 25 MG TABLET PO SCH ×2 (08:30→21:30)
[2017-09-30] MEDS: amLODIPine 10 MG TABLET PO SCH (08:30)
[2017-09-30] MEDS: PANTOPRAZOLE 40 MG TABLET PO SCH (08:31)
[2017-09-30] MEDS: INSULIN REGULAR 100 UNIT/ML SUBCUT SCH ×4 (08:32→21:30)
[2017-09-30] MEDS ORDERED: ACETAMINOPHEN 325 MG TABLET PO PRN (15:28)
[2017-09-30] MEDS ORDERED: hydrALAZINE 20 MG/1 ML VIAL IV PRN (18:49)
[2017-09-30] MEDS: GABAPENTIN 600 MG TABLET PO SCH (21:30)
[2017-10-01] MEDS: MORPHINE 2 MG/1 ML SYRINGE IV PRN ×2 (02:45→21:38)
[2017-10-01] MEDS: INSULIN REGULAR 100 UNIT/ML SUBCUT SCH ×4 (08:33→21:37)
[2017-10-01] MEDS: LOSARTAN 50 MG TABLET PO SCH (08:33)
[2017-10-01] MEDS: amLODIPine 10 MG TABLET PO SCH (08:34)
[2017-10-01] MEDS: PANTOPRAZOLE 40 MG TABLET PO SCH (08:34)
[2017-10-01] MEDS: CARVEDILOL 25 MG TABLET PO SCH ×2 (08:34→21:37)
[2017-10-01] MEDS ORDERED: POLYVINYL ALCOHOL 1.4% OPH SOLN 15 ML BOTTLE BOTH EYES PRN (10:42)
[2017-10-01] MEDS ORDERED: SKIN HEALING OINT (AQUAPHOR) 50 GM TUBE TOP PRN (11:23)
[2017-10-01] MEDS ORDERED: MINERAL OIL/PETROLATUM OPH OINT 3.5 GM TUBE BOTH EYES SCH (21:00)
[2017-10-01] MEDS: GABAPENTIN 600 MG TABLET PO SCH (21:37)
[2017-10-02] MEDS ORDERED: MORPHINE 2 MG/1 ML SYRINGE IV STA (01:42)
[2017-10-02] MEDS: INSULIN REGULAR 100 UNIT/ML SUBCUT SCH ×2 (07:39→12:39)
[2017-10-02 10:49] LABS: Basophils % 0.5 % (0.0-0.8); Eosinophils # 0.2 10*3/uL (0.0-0.87); Eosinophils % 3.7 % (0.00-10.9); Hematocrit 27.1 VOL% (42.0-52.0); Hemoglobin 8.3 GM/DL (14.0-18.0); Immature Granulocytes % 0.5 %; Immature Granulocytes Absolute 0.02 #; Lymphocytes # 0.8 10*3/uL (1.4-4.0); Lymphocytes % 19.4 % (21.2-54.2); Mean Corpuscular HGB Conc 30.6 GM/DL (32-36); Mean Corpuscular Hemoglobin 32 PG (27-34); Mean Platelet Volume 11.5 FL (9.6-12.0); Monocytes # 0.4 10*3/uL (0.11-0.8); Monocytes % 8.3 % (1.7-12.7); Neutrophils # 2.9 10*3/uL (1.4-7.4); Neutrophils % 67.6 % (38.7-73.9); Platelet Count 107 T/CUMM (130-400); Red Blood Count 2.63 MC/CUMM (3.8-5.5); Red Cell Distribution Width 14.4 % (9.3-17.3); White Blood Count 4.3 T/CUMM (4-12)
[2017-10-02 11:01] LABS: Calcium 7.1 MG/DL (8.5-10.1); Potassium 4.4 MMOL/L (3.5-5.1)
[2017-10-02] MEDS: PANTOPRAZOLE 40 MG TABLET PO SCH (12:42)
[2017-10-02] MEDS: LOSARTAN 50 MG TABLET PO SCH (12:42)
[2017-10-02] MEDS: CARVEDILOL 25 MG TABLET PO SCH (12:42)
[2017-10-02] MEDS: amLODIPine 10 MG TABLET PO SCH (12:42)
[2017-10-02 14:54] VITALS: BP 153/77
== END 2017-10-02 15:07 | disposition home or self-care (01) | DRG 291 ==
LOC: EDBD → EDUNIT# → N.ED 22:23 → N.EDINP 09-30 02:34 → N.ICU 09-30 03:37 → N.3E 10-01 10:03
PROVIDERS: ADMIT Internal Medicine Geriatric Medicine; ATTEND Internal Medicine Geriatric Medicine